=== PATIENT | male | born 1980 | race Caucasian/White ===

== ENCOUNTER 2021-09-27 11:38 | Emergency (ER) | payer MEDICAID ==
[~2021-09-27] VITALS: Ht 175.3 cm; Wt 73.0 kg
[2021-09-27] MEDS ORDERED: DIPH25CA83 MT (13:07)
[2021-09-27 13:45] VITALS: BP 120/72
== END 2021-09-27 14:02 | disposition home or self-care (01) ==
LOC: ER 11:38
DX: R25.8 Other abnormal involuntary movements (principal); Z88.8 Allergy status to other drugs, medicaments and biological substances
CPT/HCPCS: 99283